=== PATIENT | female | born 1950 | race Caucasian/White ===

== ENCOUNTER 2018-03-04 07:46 | Day surgery (SDC) | payer MEDICARE, OTHER ==
[2018-03-04] VITALS (11 sets, daily range): BP systolic 102–134; BP diastolic 67–85; PULSE 59–72; TEMP 97.7
[~2018-03-04] VITALS: Ht 165.2 cm; Wt 88.7 kg
[2018-03-04] MEDS ORDERED: ZYLOPRIM 100MG100 MG PO (08:31)
[2018-03-04] MEDS ORDERED: BENICAR HCT 12.1 TAB PO (08:31)
[2018-03-04] MEDS ORDERED: PRAVACHOL 40MG40 MG PO (08:32)
[2018-03-04] MEDS ORDERED: ASPIRIN E.C. 8181 MG PO (08:32)
[2018-03-04] MEDS ORDERED: NEXIUM 40MG40 MG PO (08:33)
[2018-03-04] MEDS ORDERED: GLUCOPHAGE500 MG/TAB PO (08:33)
[2018-03-04] MEDS ORDERED: ZANTAC 150MG T150 MG PO (08:34)
[2018-03-04 08:41] LABS: HEMATOCRIT 39.1 % (37.0-47.0); HEMOGLOBIN 12.4 g/dl (12.5-16.0); MEAN CELL VOLUME 86 fl (80.0-100.0); MEAN CORPUSCULAR HEMOGLOBIN 27 pg (27.0-31.0); MEAN CORPUSCULAR HGB CONC 32 g/dl (33.0-37.0); MEAN PLATELET VOLUME 8.9 fl (7.4-10.4); PLATELET COUNT 353 K/mm3 (130-400); RED BLOOD COUNT 4.56 M/mm3 (4.10-5.30); REDCELL DISTRIBUTION WIDTH-CV 13.8 % (11.5-14.5)
[2018-03-04 08:47] LABS: PROTHROMBIN TIME 11.4 SECONDS (9.7-12.8)
[2018-03-04 08:58] LABS: CALCIUM 9.4 mg/dL (8.4-10.2); CREATININE, serum 0.84 mg/dL (0.52-1.25); POTASSIUM 4.3 mmol/L (3.4-5.0)
[2018-03-04] MEDS ORDERED: OMEGA-3 1000 MG1 CAP PO (11:24)
== END 2018-03-04 15:50 | disposition home or self-care (01) ==
LOC: COL.CAR 07:46
PROVIDERS: Internal Medicine Cardiovascular Disease
DX: I25.119 Atherosclerotic heart disease of native coronary artery with unspecified angina pectoris (principal); I10 Essential (primary) hypertension; E78.5 Hyperlipidemia, unspecified; E11.9 Type 2 diabetes mellitus without complications; F32.9 Major depressive disorder, single episode, unspecified; K44.9 Diaphragmatic hernia without obstruction or gangrene; M10.9 Gout, unspecified
CPT/HCPCS: J1644; J2250; J3010; Q9967

== ENCOUNTER 2019-04-20 06:28 | Day surgery (SDC) | payer MEDICARE, OTHER ==
[~2019-04-20] VITALS: Ht 165.1 cm; Wt 90.3 kg
[~2019-04-20 06:28] MED LIST: ASPIRIN E.C. 8181 MG PO; BENICAR HCT 12.1 TAB PO; GLUCOPHAGE500 MG/TAB PO; NEXIUM 40MG40 MG PO; OMEGA-3 1000 MG1 CAP PO; PRAVACHOL 40MG40 MG PO; ZANTAC 150MG T150 MG PO; ZYLOPRIM 100MG100 MG PO
[2019-04-20 07:19] VITALS: BP 124/92; PULSE 76; TEMP 98
[2019-04-20] MEDS ORDERED: SINEQUAN 1010 MG/CAP PO (07:29)
[2019-04-20] MEDS ORDERED: PRAVACHOL80 MG PO (07:31)
[2019-04-20] MEDS ORDERED: PROTONIX20 MG PO (07:33)
[2019-04-20] MEDS ORDERED: OSTEO-BI-FLEX 21 TAB PO (07:35)
[2019-04-20] MEDS ORDERED: CENTRUM SILVER1 TA2 PO (07:35)
--- NOTE | 2019-04-20 07:45 | NUR ---
TO RM AT 07- CALL LIGHT IN REACH SISTER IN WAITING RM
[2019-04-20 09:30] VITALS: BP 119/56; PULSE 68; TEMP 97.7
--- NOTE | 2019-04-20 09:30 | NUR ---
Patient brought back to [facility] via cart. Ambulated to chair without difficulty. Placed on monitors, vital signs stable. IV fluids infusing without difficulty. Patient denies pain or nausea. Requesting juice and toast. Report recieved from Izabella BOLIVAR. Per MD can resume regular diet. Will continue to monitor.
[2019-04-20 09:45] VITALS: BP 94/53; PULSE 65
--- NOTE | 2019-04-20 09:45 | NUR ---
Patient tolerating food and drink without difficulty. All safety and comfort measures provided, will continue to monitor.
[2019-04-20 10:00] VITALS: BP 111/58; PULSE 68
--- NOTE | 2019-04-20 10:00 | NUR ---
Patient states she feels ready to go home at this time. Vital signs stable. Tolerating food and drink without difficulty. Will continue to monitor.
[2019-04-20 10:15] VITALS: BP 97/58; PULSE 66
--- NOTE | 2019-04-20 10:15 | NUR ---
Vital signs stable. IV removed from right AC. Dishcarge instructions reviewed with patient and sister. Ambulated to bathroom without difficulty. Patient to get dressed at this time. Will continue to monitor.
--- NOTE | 2019-04-20 10:35 | NUR ---
Patient brought down to lobby via wheel chair. To be driven home by sister.
== END 2019-04-20 10:35 | disposition home or self-care (01) ==
LOC: SDCO 06:28
DX: D12.3 Benign neoplasm of transverse colon (principal); D12.2 Benign neoplasm of ascending colon; D64.9 Anemia, unspecified; K57.30 Diverticulosis of large intestine without perforation or abscess without bleeding; K62.89 Other specified diseases of anus and rectum; K44.9 Diaphragmatic hernia without obstruction or gangrene; K31.89 Other diseases of stomach and duodenum; E11.9 Type 2 diabetes mellitus without complications; E78.00 Pure hypercholesterolemia, unspecified; K21.9 Gastro-esophageal reflux disease without esophagitis; K22.2 Esophageal obstruction; Z80.42 Family history of malignant neoplasm of prostate; Z80.0 Family history of malignant neoplasm of digestive organs; Z90.710 Acquired absence of both cervix and uterus; Z90.49 Acquired absence of other specified parts of digestive tract; Z87.891 Personal history of nicotine dependence
CPT/HCPCS: J2250; J2405; J3010; J7030

== ENCOUNTER → 2019-04-28 | Outpatient (CLI) | payer MEDICARE, OTHER ==
[~2019-04-28] MED LIST changes: +CENTRUM SILVER1 TA2 PO; +OSTEO-BI-FLEX 21 TAB PO; +PRAVACHOL80 MG PO; +PROTONIX20 MG PO; +SINEQUAN 1010 MG/CAP PO
== END ==
LOC: COL.RAD 07:09
DX: D64.9 Anemia, unspecified (principal); K52.9 Noninfective gastroenteritis and colitis, unspecified; K21.9 Gastro-esophageal reflux disease without esophagitis; K22.9 Disease of esophagus, unspecified; K44.9 Diaphragmatic hernia without obstruction or gangrene
CPT/HCPCS: A9541

== ENCOUNTER 2019-07-21 09:30 | Day surgery (SDC) | payer MEDICARE, OTHER ==
[~2019-07-21] VITALS: Ht 165.1 cm; Wt 91.2 kg
[2019-07-21] VITALS (10 sets, daily range): BP systolic 94–154; BP diastolic 42–97; PULSE 70–81; TEMP 97.4–97.9
[2019-07-21] MEDS ORDERED: ESTRADERM0.05 MG/24 TD (10:32)
[2019-07-21] MEDS ORDERED: BELSOMRA10 MG PO (10:32)
[2019-07-21] MEDS ORDERED: PROAIR HFA0.09 MG/AC IH (10:33)
[2019-07-21] MEDS ORDERED: VITAMIN C500 MG PO (10:33)
[2019-07-21] MEDS ORDERED: FERROUS SU325 MG/TAB PO (10:33)
[2019-07-21 11:03] LABS: CALCIUM 9.6 mg/dL (8.4-10.2); CREATININE, serum 0.72 (0.52-1.25); POTASSIUM 4.2 mmol/L (3.4-5.0)
--- NOTE | 2019-07-21 16:21 | NUR ---
Patient to room by PACU staff. Patient is on oxygen at 2L/NC. Having some nausea. Rates pain 4/10 and describes it "not really pain just a discomfort" in her abd. Six lap sites on abd with bandaids CDI. Stomach is bloated and patient says that it is the gas from the procedure. Denies further needs.
--- NOTE | 2019-07-21 18:08 | NUR ---
Patient ambulates from bed to bathroom with stand by assist of one and use of walker. Gait slow and steady. Patient burping and says that it helps to alleviate pressure in chest. Sits up in recliner chair and is eating her clear liquid dinner tray.
--- NOTE | 2019-07-21 18:21 | NUR ---
Patient ambulates to nurses station and back to room. Rates pain 6/10 in abd and requests pain medication. Administered pain medication as prescribed. Patient sitting up in chair visiting with friend.
--- NOTE | 2019-07-21 21:00 | NUR ---
PATIENT ASSISTED TO BATHROOM THEN TO BED. RATES PAIN 4/10 TO ABDOMEN AND ASKS FOR ANOTHER WARM BLANKET TO PUT ON HER ABDOMEN. TAKES HS MEDS WITHOUT PROBLEM. IVF INFUSING TO RIGHT HAND WITHOUT PROBLEM. IS ALERT AND ORIENTED X4.
--- NOTE | 2019-07-21 22:45 | NUR ---
AMBULATES TO NURSES STATION AND BACK TO ROOM. RATES PAIN 6/10 TO ABDOMEN, MEDICATED WITH OXYCODONE 5MG PO NOW.
--- NOTE | 2019-07-22 02:15 | NUR ---
Pt rates pain 6/10 to abdomen, ice applied to robotic sites as well as Oxycodone 5mg po given.
--- NOTE | 2019-07-22 03:45 | NUR ---
Pt awake, takes scheduled ES Tylenol at this time. Denies pain. Ambulates to bathroom with supervision, voids and back to bed, gait steady.
[2019-07-22 03:47] VITALS: BP 145/62; PULSE 80; TEMP 98.6
--- NOTE | 2019-07-22 05:30 | NUR ---
IVF COMPLETE, PATIENT TAKING ORAL FLUIDS WELL. CAPPED IV SITE AT THIS TIME.
[2019-07-22] MEDS ORDERED: TYLENOL 500MG500 MG PO (07:36)
[2019-07-22] MEDS ORDERED: ROXICODONE 55 MG/TAB PO ×2 (07:36→07:38)
[2019-07-22] MEDS ORDERED: ZOFRAN 4MG T4 MG/TAB PO (07:37)
--- NOTE | 2019-07-22 08:00 | NUR ---
Patient resting in bedside recliner at this time. Patient is alert and independent in the room. Patient reports nausea, stating she got light headed and sweaty immediately after the nausea hit. VS WNL, administered PRN zofran per order. Patient denies pain or further needs at this time, call light within reach.
[2019-07-22 08:02] VITALS: BP 127/53; PULSE 76; TEMP 98.5
--- NOTE | 2019-07-22 09:03 | NUR ---
KAI met with the patient to discuss discharge plan. The patient lives alone in [place]. She states that her son, Joshua Wright (ph#[phone]), lives a few miles away from her. She reports independence with ADLs and has a walker. The patient's primary care provider is JASE Abrams and she would like to receive her medications at [facility]. She reports no difficulties obtaining her meds. The patient does not have advanced directives in EMR, but she states that she does have them completed. She states that she would have designated her three sons': Joshua, Lucas, and Patricio Wright as her DPOA-HC. The patient plans to return home upon discharge. She states that her sister plans to stay with her for a night. No additional needs at this time.
--- NOTE | 2019-07-22 11:36 | NUR ---
Initial visit; Patient thanked Cco for lookingin on her and wishing her well as she prepares to be discharged for home.
--- NOTE | 2019-07-22 11:43 | NUR ---
Discharge teaching completed. Discussed discharge prescription, follow up appointments, and lifting/bathing restrictions. Patient confirmed that she recieved teaching from charge operator about puree diet, gave patient printed instructions to take home with her. Patient denies further questions or needs. INT removed, catheter intact, hemostasis achieved. Patient escorted to patient entrance where she entered a private vehicle.
== END 2019-07-22 12:02 | disposition home or self-care (01) ==
LOC: SDCO 09:30 → SURG 16:28 → SDCO 07-22 12:02
PROVIDERS: Nurse Anesthetist, Certified Registered
DX: K25.4 Chronic or unspecified gastric ulcer with hemorrhage (principal); D50.0 Iron deficiency anemia secondary to blood loss (chronic); K21.9 Gastro-esophageal reflux disease without esophagitis; K44.9 Diaphragmatic hernia without obstruction or gangrene; E11.9 Type 2 diabetes mellitus without complications; Z79.84 Long term (current) use of oral hypoglycemic drugs; E78.00 Pure hypercholesterolemia, unspecified; Z90.49 Acquired absence of other specified parts of digestive tract; Z79.899 Other long term (current) drug therapy; I10 Essential (primary) hypertension
CPT/HCPCS: OP; C1781; J0690; J2405; J2704; J3010; J7030